=== PATIENT | male | born 1970 | race Caucasian/White ===

== ENCOUNTER 2022-10-16 06:52 | Day surgery (SDC) | payer BC ==
[~2022-10-16] VITALS: Ht 170.2 cm; Wt 92.4 kg
[~2022-10-16 06:52] MED LIST: ALLE180T33 PO; ATOR1TAB21 PO; NS 1,000 ML IV ONE
[2022-10-16 08:25] VITALS: TEMP 96.7
[2022-10-16 09:50] VITALS: BP 168/100; O2SAT 97
[2022-10-16] MEDS ORDERED: propofoL 200 MG/20 ML VIAL As Ordered ONE (13:41)
== END 2022-10-16 10:03 | disposition home or self-care (01) ==
LOC: M OPP 06:52
PROVIDERS: ATTEND Internal Medicine Gastroenterology
DX: Z12.11 Encounter for screening for malignant neoplasm of colon (principal); K63.5 Polyp of colon; K64.8 Other hemorrhoids; Z79.02 Long term (current) use of antithrombotics/antiplatelets; Z79.899 Other long term (current) drug therapy

== ENCOUNTER 2022-10-16 19:26 | Emergency (ER) | payer BC ==
[~2022-10-16] VITALS: Ht 170.2 cm; Wt 91.7 kg
[2022-10-16 19:26] VITALS: TEMP 98
[~2022-10-16 19:26] MED LIST changes: -NS 1,000 ML IV ONE
[2022-10-16] MEDS ORDERED: NS 1,000 ML IV ONE (20:45)
[2022-10-16] MEDS ORDERED: MORPHINE 4 MG/ML 1ML VIAL IV PRN (20:55)
[2022-10-16] MEDS ORDERED: ONDANSETRON 4MG 2ML VIAL IV ONE (20:55)
[2022-10-16] MEDS ORDERED: ISOVUE-370 76% 100ML VIAL As Ordered ONE (21:08)
[2022-10-16 21:17] LABS: BASO % 0.3 % (0.0-1.0); EOS % 0.3 % (0.0-3.0); HEMATOCRIT 48.2 % (42.0-52.0); HEMOGLOBIN 16.4 g/dl (13.5-17.5); LYMPH # 1.6 10^3/uL (1.5-5.0); LYMPH % 16.9 % (24.0-44.0); MEAN CORPUSCULAR HEMOGLOBIN 31.2 pg (27.0-33.0); MEAN CORPUSCULAR VOLUME 91.8 fl (80.0-96.0); MONO # 0.7 10^3/uL (0.0-0.8); MONO % 7.8 % (2.0-8.0); NEUTROPHILS % 74.4 % (36.0-66.0); PLATELET COUNT, AUTOMATED 267 10^3/uL (150-450); RED BLOOD COUNT 5.25 10^6/uL (4.30-6.10); WHITE BLOOD COUNT 9.4 10^3/uL (4.0-10.0)
[2022-10-16 21:31] LABS: LIPASE 33 U/L (12-53)
[2022-10-16 21:33] LABS: ALBUMIN 4.3 G/DL (3.2-5.2); ALKALINE PHOSPHATASE 61 U/L (46-116); ALT/SGPT 29 U/L (7.0-40); AST/SGOT < 8 U/L (<34); BILIRUBIN,DIRECT 0.2 MG/DL (<0.4); BILIRUBIN,TOTAL 0.8 MG/DL (0.3-1.2); TOTAL PROTEIN 7.3 G/DL (5.7-8.2)
[2022-10-16 22:31] VITALS: BP 162/97
[2022-10-16] MEDS ORDERED: SIMETHICONE 80MG CHEW TAB PO ONE (22:45)
[2022-10-16 23:26] VITALS: O2SAT 97
== END 2022-10-16 23:43 | disposition home or self-care (01) ==
LOC: M ED 19:26
DX: R14.0 Abdominal distension (gaseous) (principal); E78.5 Hyperlipidemia, unspecified; K80.20 Calculus of gallbladder without cholecystitis without obstruction; Z79.899 Other long term (current) drug therapy
CPT/HCPCS: 74021; 74177; 80047; 80076; 83605; 83690; 85025; 93041; 96361; 96374; 96375; 99284; J2405; Q9967

== ENCOUNTER → 2023-06-16 | Outpatient (CLI) | payer BC | LOC: M SLEEP 20:00 | PROVIDERS: ATTEND Physician Assistant | DX: G47.33 Obstructive sleep apnea (adult) (pediatric) (principal) ==

== ENCOUNTER → 2025-01-13 | Outpatient (REF) | payer BC ==
[2025-01-13 14:23] LABS: CHOLESTEROL LEVEL 159.0 MG/DL (<200); CHOLESTEROL RISK RATIO 2.44 (<5); LDL CHOLESTEROL 80.8 MG/DL (<100); NON-HDL-C 94.0 MG/DL; TRIGLYCERIDES LEVEL 66.0 MG/DL (<150)
== END ==
LOC: M LAB REF 12:36
PROVIDERS: ATTEND Internal Medicine
DX: Z01.810 Encounter for preprocedural cardiovascular examination (principal); E78.5 Hyperlipidemia, unspecified